=== PATIENT | female | born 1945 | race Two or more races ===

== ENCOUNTER 2022-06-29 06:50 | Day surgery (SDC) | payer OTHER ==
[~2022-06-29] VITALS: Ht 162.6 cm; Wt 67.1 kg
[~2022-06-29 06:50] MED LIST: LOSARTAN POTAS100 MG PO
== END 2022-06-29 19:00 | disposition home or self-care (01) ==
LOC: CIR.AMB 06:50
PROVIDERS: ATTEND Surgery
DX: D05.12 Intraductal carcinoma in situ of left breast (principal); Z17.0 Estrogen receptor positive status [ER+]; R59.0 Localized enlarged lymph nodes; Z20.822 Contact with and (suspected) exposure to COVID-19; I10 Essential (primary) hypertension
CPT/HCPCS: 19285; 19301; 38525; 78195; A9541; L8699

== ENCOUNTER 2022-07-12 12:18 | Emergency (ER) | payer OTHER ==
[~2022-07-12] VITALS: Ht 160 cm; Wt 69.4 kg
== END 2022-07-12 18:25 | disposition home or self-care (01) ==
LOC: ER 12:18
DX: R53.1 Weakness (principal); R63.0 Anorexia; I10 Essential (primary) hypertension; Z20.822 Contact with and (suspected) exposure to COVID-19; Z98.890 Other specified postprocedural states